=== PATIENT | male | born 1995 | race Asian ===

== ENCOUNTER 2018-05-21 13:37 | Emergency (ER) | payer MEDICAID ==
[~2018-05-21] VITALS: Ht 177.8 cm; Wt 64.0 kg
[2018-05-21 13:48] VITALS: BP 139/70; Ht 177.8 cm; Wt 64.0 kg
== END 2018-05-21 14:47 | disposition home or self-care (01) ==
LOC: ED 13:37
DX: S80.852A Superficial foreign body, left lower leg, initial encounter (principal); W22.8XXA Striking against or struck by other objects, initial encounter; W45.8XXA Other foreign body or object entering through skin, initial encounter; Y93.89 Activity, other specified; Y92.89 Other specified places as the place of occurrence of the external cause; Y99.8 Other external cause status

== ENCOUNTER 2020-06-01 00:03 | Emergency (ER) | payer MEDICAID, SELFPAY ==
[~2020-06-01] VITALS: Ht 177.8 cm; Wt 68.0 kg
[2020-06-01 00:06] VITALS: Ht 177.8 cm; Wt 68.0 kg
[2020-06-01 03:16] VITALS: BP 110/65
== END 2020-06-01 03:16 | disposition home or self-care (01) ==
LOC: ED 00:03
DX: F41.9 Anxiety disorder, unspecified (principal); R07.89 Other chest pain; R06.00 Dyspnea, unspecified
CPT/HCPCS: Q0092